=== PATIENT | female | born 1955 | race Caucasian/White ===

== ENCOUNTER 2019-06-22 18:17 | Inpatient (IN) | payer MEDICARE ==
[~2019-06-22] VITALS: Ht 160 cm; Wt 68.0 kg
--- NOTE | 2019-06-22 19:41 | NUR ---
PT IS RESTING IN IN BED WITH EYES OPEN. ALERT TO SELF. DIFFICULT TO DETERMINE A PROPER ORIENTATION DUE TO PT TALKING IN A LOOP. SHE SAID 3 DIFFERENT THINGS ABOUT HER PAST, AND THEN STARTED OVER WITH THE SAME THING, OVER AND OVER. SHE DOES ANSWER QUESTIONS APPROPRIATELY. SR'S ARE UP X 2 IN BED. CALL LIGHT AND BEDSIDE TABLE ARE WITHIN EASY REACH. IS AT BEDSIDE.
[2019-06-22 21:02] VITALS: BP 185/82
--- NOTE | 2019-06-22 22:05 | NUR ---
PT IS RESTING IN BED WITH EYES OPEN. NO ACUTE DISTRESS NOTED.
--- NOTE | 2019-06-22 23:21 | NUR ---
QUIET HOURS. PT LYING IN BED ON LEFT SIDE EYES CLOSED RESTING QUIETLY. CL IN REACH
--- NOTE | 2019-06-23 02:15 | NUR ---
PT IS RESTING QUIETLY IN BED WITH EYES CLOSED. RESPS ARE EVEN AND UNLABORED. NO ACUTE DISTRESS NOTED.
--- NOTE | 2019-06-23 03:29 | NUR ---
I have reviewed this patient and I concur with the Shift Assessment completed by the Licensed Practical Nurse today this shift.
--- NOTE | 2019-06-23 05:23 | NUR ---
PT ASSISTED TO THE BATHROOM WITH MAX ASSIST. HER ATTENTION SPAN IS VERY SHORT. SHE TALKS CONSISTENTLY ABOUT HER FAMILY. SHE NEEDS REPEATED CUEING FOR ALL TASKS, SHE GETS OFF TRACK WHILE TALKING AND FORGETS WHAT SHE IS DOING. ASSISTED BACK TO BED AFTER.
[2019-06-23 05:52] LABS: BASOPHILS 0.5 % (0-2); EOSINOPHILS 7.4 % (0-7); HEMOGLOBIN 13.9 g/dL (12-16); IMMATURE GRANULOCYTES 0.2 % (0-5); LYMPHOCYTES 42.1 % (15-50); MCH 31.7 pg (26.0-34.0); MCHC 33.1 g/dL (31.0-37.0); MCV 95.9 fL (80.0-100.0); MEAN PLATELET VOLUME 11.7 fL (7.4-10.4); MONOCYTES 14.5 % (2-11); NEUTROPHILS 35.3 % (40-80); PLATELET COUNT 256 10x3/uL (130-400); RBC 4.38 10x6/uL (4.00-5.40); RDW 13.4 % (11.5-14.5); WBC 6.5 10x3/uL (4.8-10.8)
[2019-06-23 06:27] LABS: ANION GAP 14.2 mmol/L (8-16); CALCIUM 9.3 mg/dL (8.5-10.1); CREATININE - SERUM 1.7 mg/dL (0.6-1.3); POTASSIUM - SERUM 4.2 mmol/L (3.5-5.1)
[2019-06-23 06:49] VITALS: BP 185/82; BMI 26.6
[2019-06-23 07:57] VITALS: BP 154/64
--- NOTE | 2019-06-23 12:10 | NUR ---
PATIENT ADMITTED TO [facility] FROM AN OUTSIDE FACILITY. DR. JUAN M STEELE IS HER PCP. DISCHARGE PLANS ARE FOR HER TO RETURN HOME WITH HER FAMILY. WILL CONTINUE TO FOLLOW WITH PATIENT AND WILL ASSIST WITH DISCHARGE NEEDS.
--- NOTE | 2019-06-23 13:52 | NUR ---
RESTING QUIETLY IN BED. NO S/S DISTRESS. RUE, RLE HAS NO PURPOSEFUL MOVEMENT BUT HAS LOTS OF TONE. HAS BRACE ON TO RLE. INCONT OF B/B. CALL LIGHT IN REACH
[2019-06-23 14:36] VITALS: Ht 160 cm; Wt 68.0 kg
--- NOTE | 2019-06-23 19:30 | NUR ---
PT SITTING UP IN WHEELCHAIR IN REHAB GYM WITH IN ROOM. DENIES NEEDS AT THIS TIME. PT STATES " I FEEL LIKE IM PANICKY AND NEED A CIGARETTE." THIS NURSE EDUCATED PT THAT SHE WILL GET A NEW PATCH IN A LITTLE WHILE AND IT WILL HELP WITH THE URGE TO SMOKE. RESP EVEN AND UNLABORED. WCTM
[2019-06-23 20:56] VITALS: BP 183/70
--- NOTE | 2019-06-24 00:07 | NUR ---
QUIET HOURS. PT LYING IN BED ON RIGHT SIDE EYES CLOSED RESTING QUIETLY. NO SIGNS OF ACUTE DISTRESS NOTED. CL IN REACH
--- NOTE | 2019-06-24 06:01 | NUR ---
WAS WALKING BY PT ROOM AND PHONE WAS RINGING LAB CAME OUT AND STATED PT WAS SITTING ON BUTTOCKS ON THE FLOOR. WENT INTO ROOM PT WAS SITTING ON FLOOR ON BUTTOCKS AND ALERT WITH NO SIGNS OF INJURY. VITALS WERE TEMP- 97.8, BP 149/82, PULSE 76, RESPIRATIONS 20, AND O2 SAT 97%. PT CONFUSED. BED ALARM PLACED ON BED. CALL LIGHT WAS IN REACH. BED IN LOW SIDE RAILS X2. PT DENIES INJURY AND STATED "I WAS BEING STUPID AND WANTED TO GET UP" PT NEEDED TO USE BATHROOM. PT TAKEN TO COMMODE AND PLACED BACK IN BED. WILL CONTINUE TO MONITOR. FAMILY NOTIFIED AND DOCTOR AMIE NOTIFIED.
[2019-06-24 06:34] LABS: BASOPHILS 0.1 % (0-2); EOSINOPHILS 6.8 % (0-7); HEMATOCRIT 41.8 % (36.0-48.0); HEMOGLOBIN 13.5 g/dL (12-16); IMMATURE GRANULOCYTES 0.3 % (0-5); LYMPHOCYTES 35.8 % (15-50); MCHC 32.3 g/dL (31.0-37.0); MCV 95.9 fL (80.0-100.0); MEAN PLATELET VOLUME 11.9 fL (7.4-10.4); MONOCYTES 15.5 % (2-11); NEUTROPHILS 41.5 % (40-80); PLATELET COUNT 258 10x3/uL (130-400); RBC 4.36 10x6/uL (4.00-5.40); RDW 13.4 % (11.5-14.5); WBC 7.5 10x3/uL (4.8-10.8)
[2019-06-24 07:14] LABS: ANION GAP 14.6 mmol/L (8-16); CALCIUM 9.5 mg/dL (8.5-10.1); CARBON DIOXIDE 24.5 mmol/L (21.0-32.0); CREATININE - SERUM 1.7 mg/dL (0.6-1.3); POTASSIUM - SERUM 4.1 mmol/L (3.5-5.1)
--- NOTE | 2019-06-24 08:00 | NUR ---
PATIENT SITTING UP IN BED TO EAT BREAKFAST. CONFUSED. KNOWS SELF AND THAT SHE IS IN THE HOSPITAL ONLY. DOES NOT KNOW [facility]/TIME OR SITUATION. BED ALARM ON. CALL LIGHT WITHIN REACH. VOICES NO NEEDS AT THIS TIME. WILL CONTINUE WITH PLAN OF CARE
[2019-06-24 08:08] VITALS: BP 152/77
--- NOTE | 2019-06-24 10:02 | NUR ---
ROOM CHANGED FROM 1115 TO 1112B SO PATIENT CAN BE CLOSER TO NURSING STATION IF BED OR CHAIR ALARM GOES OFF. IN REHAB ROOM WORKING WITH PHYSICAL THERAIST. DENIES ANY PAIN/DISC AT THIS TIME.
--- NOTE | 2019-06-24 13:44 | NUR ---
PATIENTS HERE. GAVE THIS NURSE DPOA PAPERS. NURSE COPIED PAPERS AND PUT ON PATIENTS CHART
--- NOTE | 2019-06-24 14:49 | NUR ---
I have reviewed this patient and I concur with the Shift Assessment completed by the Licensed Practical Nurse today this shift.
--- NOTE | 2019-06-24 16:25 | NUR ---
CARE TEAM MEETING: PATIENT IS NEW TO UNIT AND WILL BE RA AT NEXT MEETING. WILL CONTINUE TO FOLLOW WITH PATIENT.
--- NOTE | 2019-06-24 19:46 | NUR ---
AWAKE AND ALERT. NOTED CONFUSED. WAS UP IN WHEELCHAIR BEING WHEELED AROUND BY . ASSISTED TO BATHROOM AND TO BED. RESPIRATIONS UNLABORED. REMAINS IN ROOM. CALL LIGHT IN REACH.
[2019-06-24 20:37] VITALS: BP 179/77
--- NOTE | 2019-06-25 02:41 | NUR ---
SLEEPING WITH RESPIRATIONS UNLABORED. NO DISTRESS NOTED. CALL LIGHT IN REACH.
--- NOTE | 2019-06-25 06:19 | NUR ---
QUIET HOURS. NO ACUTE CHAGNES IN CONDITION THIS SHIFT. REMAINS CONFUSED AND DISORIENTED TO TIME PLACE AND SITUATION. SAFETY MEASURES IN PLACE.
[2019-06-25 08:28] VITALS: BP 144/55
--- NOTE | 2019-06-25 09:35 | NUR ---
PT AM MEDS ADMINISTERED. PT DENIES NEEDS. WCTM.
--- NOTE | 2019-06-25 13:51 | NUR ---
NUTRITION F/U CHART REVIEWED, PT VISIT. TOLERATING REG DIET WITH 50 TO 75% INTAKE RECENT MEALS. NO RECENT BM RECORDED. PT IS ON MIRALAX. WILL CONTINUE TO PROVIDE DIET, HONOR FOOD PREFERENCES. RD FOLLOWING
--- NOTE | 2019-06-25 19:30 | NUR ---
BEDSIDE REPORT RECEIVED FROM DAY SHIFT, PT CARE ASSUMED. INTRODUCED SELF AND WROTE NAME ON BOARD. PT LYING IN BED, AAOX4, C/O HEADACHE PAIN OF 9, ON A SCALE OF 0-10. AT BEDSIDE. DENIES ANY OTHER NEEDS AT THIS TIME. BED LOWEST POSITION, SR X2, CALL LIGHT WITHIN REACH. WILL CONTINUE TO MONITOR.
--- NOTE | 2019-06-25 19:55 | NUR ---
ASSISTED PT TO BATHROOM AND BACK TO BED WITH CANDELARIA HERRERA. DENIES ANY OTHER NEEDS AT THIS TIME. AT BEDSIDE. BED IN LOWEST POSITION, SR X2, CALL LIGHT WITHIN REACH. WILL CONTINUE TO MONITOR.
--- NOTE | 2019-06-25 20:28 | NUR ---
PT LYING IN BED A&A. NIGHT TIME MEDS AND ULTRAM 50 MG ADMINISTERED, PER ORDER. ASSISTED PT TO BATHROOM AND BACK TO BED. DENIES ANY OTHER NEEDS AT THIS TIME. BED IN LOWEST POSITION, SR X2, CALL LIGHT AND CELL PHONE WITHIN REACH. WILL CONTINUE TO MONITOR.
--- NOTE | 2019-06-25 20:44 | NUR ---
OLD NICODERM PATCH REMOVED FROM RIGHT UPPER ARM, NEW NICODERM PATCH APPLIED TO LEFT UPPER ARM.
--- NOTE | 2019-06-25 21:01 | NUR ---
PT C/O ANXIETY, REQUESTING XANAX. XANAX 0.5 MG ADMINISTERED, PER ORDER. AT BEDSIDE. PT DENIES ANY OTHER NEEDS AT THIS TIME. BED IN LOWEST POSITION, SR X2, CALL LIGHT AND CELL PHONE WITHIN REACH. WILL CONTINUE TO MONITOR.
[2019-06-25 21:11] VITALS: BP 169/73
--- NOTE | 2019-06-26 00:47 | NUR ---
PT LYING IN BED WITH EYES CLOSED, RR EVEN AND NONLABORED, NO S/S OF DISTRESS, AROUSES EASILY TO VOICE. DENIES ANY NEEDS AT THIS TIME. BED IN LOWEST POSITION, SR X2, CALL LIGHT WITHIN REACH. WILL CONTINUE TO MONITOR.
--- NOTE | 2019-06-26 05:27 | NUR ---
PT LYING IN BED, ARRT TECHNOLOGIST TO ROOM FOR AM LABS. ARRT TECHNOLOGIST REPORTS, "PT DOES NOT KNOW HER NAME OR WHERE SHE IS." WHEN THIS NURSE ASKED PT HER NAME, PLACE, TIME, AND SITUATION, PT WAS AAOX3, DISORIENTED TO SITUATION. REPORTS, "MY BRAIN IS FOGGY, I'M NOT AWAKE ALL THE WAY YET." REORIENTED TO SITUATION. PT NOTED TO REPEAT STATEMENTS. AM MEDS ADMINISTERED, PER ORDER. ASSISTED PT ONTO AND OFF BED HERNANDEZ WITH ODESSA NOLAN. CLEAR YELLOW URINE NOTED. DENIES ANY NEEDS AT THIS TIME. BED IN LOWEST POSITION, SR X2, CALL LIGHT WITHIN REACH. WILL CONTINUE TO MONITOR.
[2019-06-26 06:23] LABS: BASOPHILS 0.4 % (0-2); EOSINOPHILS 8.4 % (0-7); HEMATOCRIT 41.4 % (36.0-48.0); HEMOGLOBIN 13.4 g/dL (12-16); IMMATURE GRANULOCYTES 0.3 % (0-5); LYMPHOCYTES 32.7 % (15-50); MCH 31.5 pg (26.0-34.0); MCHC 32.4 g/dL (31.0-37.0); MCV 97.2 fL (80.0-100.0); MEAN PLATELET VOLUME 12.7 fL (7.4-10.4); MONOCYTES 15.3 % (2-11); NEUTROPHILS 42.9 % (40-80); PLATELET COUNT 229 10x3/uL (130-400); RBC 4.26 10x6/uL (4.00-5.40); RDW 13.3 % (11.5-14.5); WBC 7.8 10x3/uL (4.8-10.8)
[2019-06-26 06:49] LABS: ANION GAP 13.8 mmol/L (8-16); CALCIUM 9.6 mg/dL (8.5-10.1); CARBON DIOXIDE 27.2 mmol/L (21.0-32.0); CREATININE - SERUM 1.8 mg/dL (0.6-1.3)
[2019-06-26 08:00] VITALS: BP 168/68
--- NOTE | 2019-06-26 10:33 | NUR ---
STILL CONFUSED. MAKE INAPPROPIRATE COMMENTS TO MALE STAFF. CAN BE REDIRECTED BUT FORGETS AND STARTS UP AGAIN MAKING COMMENTS TO MALE STAFF. MALE STAFF LEFT THERAPY ROOM WHILE PT WAS WORKING WITH THERAPY. PT IS WEAK WITH INCREASED WEAKNESS ON RT NOTED.
--- NOTE | 2019-06-26 12:10 | NUR ---
SITTING UP IN WC IN ROOM FOR LUNCH. IN ROOM WITH PT.
--- NOTE | 2019-06-26 17:46 | NUR ---
SITTING IN WC IN ROOM EATING SUPPER WITH . IS STILL CONFUSED AND HAS HARD TIME MOVING LEGS.
--- NOTE | 2019-06-26 19:19 | NUR ---
PT LYING IN BED WATCHING TV. CL IN REACH. IN ROOM. RESP EVEN AND UNLABORED. PT IS CONFUSED. BED ALARM ON. LUNGS CLEAR. BOWEL ACTIVE X4. DENIES NEEDS AT THIS TIME. BED IN LOW SIDE RAILS X2. WILL CONTINUE TO MONITOR.
[2019-06-26 21:05] VITALS: BP 149/63
--- NOTE | 2019-06-26 21:53 | NUR ---
ASSISTED TO AND FROM BATHROOM. PT IS A HIGH FALL RISK AND LEGS WILL COLLAPSE IF NOT PAYING ATTENTION. PT BACK IN BED. BED ALARM ON. CL IN REACH. WCTM
--- NOTE | 2019-06-26 23:19 | NUR ---
I have reviewed this patient and I concur with the Shift Assessment completed by the Licensed Practical Nurse today this shift.
--- NOTE | 2019-06-27 02:00 | NUR ---
RESTING QUETLY. CL IN REACH. NO DISTRESS NOTED. BED ALARM ON. WCTM
--- NOTE | 2019-06-27 05:35 | NUR ---
PT WET THE BED THIS AM. PT ASSISTED TO AND FROM BATHROOM TO USE BATHROOM AND GET CLEANED. PT BACK IN BED. DENIES FUTHER NEEDS. VERY CONFUSED THIS AM. CL IN REACH. BED ALARM ON. WCTM
--- NOTE | 2019-06-27 05:42 | NUR ---
BP 166/56 LEFT ARM. BP MED GIVEN.
[2019-06-27 08:00] VITALS: BP 143/58
--- NOTE | 2019-06-27 09:55 | NUR ---
WORKING WITH THERAPY
--- NOTE | 2019-06-27 14:25 | NUR ---
SITTING UP IN WC IN ROOM. IN ROOM WITH PT. SHE IS STILL VERY CONFUSED, IMPULSIVE AND NEEDS CONSTAND SUPERVISION FOR SAFETY.
[2019-06-27 19:26] VITALS: BP 174/75
--- NOTE | 2019-06-27 19:42 | NUR ---
PT VERY ANXIOUS TONIGHT AND MAD WANTING TO GO HOME. EDUCATED PT ON STAYING HERE TO GET STRENGTH AND PT STILL UPSET. IN ROOM. XANAX AND PAIN PILL GIVEN PER MAR. PT IS STILL CONFUSED. BED ALARM ON. ASSIST TO AND FROM BATHROOM. PT BACK IN BED. CL IN REACH. RESP EVEN AND UNLABORED. BED IN LOW SIDE RAILS X2. WILL CONTINUE TO MONITOR.
--- NOTE | 2019-06-28 00:12 | NUR ---
I have reviewed this patient and I concur with the Shift Assessment completed by the Licensed Practical Nurse today this shift.
--- NOTE | 2019-06-28 01:51 | NUR ---
PT RESTING QUIETLY. CL IN REACH. NO DISTRESS NOTED.WCTM
--- NOTE | 2019-06-28 05:34 | NUR ---
CHANGED PT DUE TO INCONTINENCE OF URINE. LINEN ON BED AND BRIEF CHANGED. PT DENIES NEEDS AT THIS TIME. SITTING UP IN BED DRINKING COFFEE. CL IN REACH. [facility] BED ALARM ON
--- NOTE | 2019-06-28 07:45 | NUR ---
RESTING QUIETLY IN BED. COVERS PULLED UP TO CHIN. NO S/S DISTRESS. SIDE RAILS UP X3. BED ALARM IN PLACE AND ACTIVATED. BED SIDE TABLE WITH PHONE AND WATER IN REACH. CALL LIGHT IN REACH
[2019-06-28 08:00] VITALS: BP 134/60
--- NOTE | 2019-06-28 12:15 | NUR ---
SITTING UP IN FOR LUNCH. VISITED EARLIER THIS MORNING BUT HAD S/S OF NOT FEELING WELL. HE WENT HOME. PT FOCUSED ON BEING SICK TO LIKE . GETS FACTS CONFUSED TILL SHE THEN THOUGHT HER DAUGHTER FROM [place] SHOULD NOT CALL ON PHONE DUE TO POSSIBILITY OF GETTING SICK TOO.
--- NOTE | 2019-06-28 15:28 | NUR ---
RESTING QUIETLY IN BED. HAS BEEN UP AND DOWN ALL DAY. APPETITE REMAINS POOR. CALL LIGHT IN REACH
--- NOTE | 2019-06-28 18:20 | NUR ---
STILL EXTREMELY CONFUSED. CONSTANTLY TALKING AND NOW WANTING TO CALL A TAXI AND LEAVE. CONSTANT REMINDING TO PT IT IS NOT TIME TO DISCHARGE IS NEEDED TO KEEP PT CALMER.
--- NOTE | 2019-06-28 19:20 | NUR ---
GREETED PATIENT AND INTRODUCED MYSELF HER NURSE. PATIENT IS LAYING IN BED WATCHING TV. RESPIRATIONS EVEN. NO S/S OF DISTRESS. STATES THAT PAIN IS 5/10 IN LOWER BACK. DENIES ANY FURTHER NEEDS AT THIS TIME. CALL LIGHT IN REACH.
[2019-06-28 20:00] VITALS: BP 135/51
--- NOTE | 2019-06-28 23:28 | NUR ---
PT. RESTING QUIETLY WITH EYES CLOSED. RESPIRATIONS EVEN. NO S/S OF DISTRESS. SR UP X 2. BED IN LOWEST POSITION. CALL LIGHT IN REACH.
--- NOTE | 2019-06-29 02:41 | NUR ---
PT. RESTING QUIETLY WITH EYES CLOSED. RESPIRTIONS EVEN. NO S/S OF DISTRESS. CALL LIGHT IN REACH.
--- NOTE | 2019-06-29 05:30 | NUR ---
PT. AWAKE AND VERY CONFUSED TO SURROUNDINGS. PT. KEEPS REPEATING SAME STATEMENTS, REDIRECTED. AM MEDICATION ADMINISTERED. LINEN CHANGE INCONTINENT URINE.
[2019-06-29 06:33] LABS: BASOPHILS 0.3 % (0-2); EOSINOPHILS 5.4 % (0-7); HEMATOCRIT 43.1 % (36.0-48.0); HEMOGLOBIN 13.8 g/dL (12-16); IMMATURE GRANULOCYTES 0.4 % (0-5); LYMPHOCYTES 31.1 % (15-50); MCH 31.2 pg (26.0-34.0); MCV 97.5 fL (80.0-100.0); MEAN PLATELET VOLUME 12.8 fL (7.4-10.4); MONOCYTES 14.7 % (2-11); NEUTROPHILS 48.1 % (40-80); PLATELET COUNT 227 10x3/uL (130-400); RBC 4.42 10x6/uL (4.00-5.40); WBC 10.3 10x3/uL (4.8-10.8)
[2019-06-29 07:00] LABS: ANION GAP 17.3 mmol/L (8-16); CALCIUM 9.9 mg/dL (8.5-10.1); CARBON DIOXIDE 24.2 mmol/L (21.0-32.0); POTASSIUM - SERUM 5.5 mmol/L (3.5-5.1)
[2019-06-29 08:14] VITALS: BP 126/49
--- NOTE | 2019-06-29 10:51 | NUR ---
WORKING WITH THERAPY
--- NOTE | 2019-06-29 14:42 | NUR ---
STILL VERY CONFUSED. THINKS SHE HAS HER COLD AND HIS SYMPTOMS. SHE INSISTS SHE IS SICK AND HAS TO LAY IN THE BED. IS GETTING MORE EASILY AGGITATED AND VERBAL. DOES NOT FOLLOW COMMANDS EASILY. TALKS NON STOP REPEATING SAME THING OVER AND OVER. INSISTED SHE HAD A FEVER BUT DID NOT AFTER IT WAS CHECKED BY STAFF.
--- NOTE | 2019-06-29 17:32 | NUR ---
LAYING IN BED. IS SLEEPY BUT AROUSES TO LOUD VERBAL STEMULI. DENIES WANTING TO EAT SUPPER. CALL LIGHT IN REACH
--- NOTE | 2019-06-29 19:22 | NUR ---
GREETED PATIENT AND INTRODUCED MYSELF HER NURSE. PATIENT IS LAYING IN BED WATCHING TV. RESPIRATIONS EVEN. NO S/S OF DISTRESS. DENIES ANY FURTHER NEEDS AT THIS TIME. CALL LIGHT IN REACH.
[2019-06-29 21:00] VITALS: BP 133/66
--- NOTE | 2019-06-29 23:47 | NUR ---
PT. RESTING QUIETLY WITH EYES CLOSED. REPIRATIONS EVEN. NO S/S OF DISTRESS. SR UP X 2. BED IN LOWEST POSITION. CALL LIGHT IN REACH.
--- NOTE | 2019-06-30 00:05 | NUR ---
PT. CLEANED OF INCONTINENT URINE. COMPLETE LINEN CHANGE. PT. REPOSITIONED FOR COMFORT. CALL LIGHT IN REACH.
--- NOTE | 2019-06-30 04:41 | NUR ---
PT. RESTING QUIETLY WITH EYES CLOSED. RESPIRATIONS EVEN. NO S/S OF DISTRESS. CALL LIGHT IN REACH.
--- NOTE | 2019-06-30 05:25 | NUR ---
PT. CLEANED OF INCONTINENT URINE. PT. BECAME VERBALLY DIRUPTIVE. UNABLE TO REDIRECT PATIENT BACK TO PROPER BEHAVIOR. HIT THIS NURSE IN THE HEAD WHILE TRYING TO REPOSITION FOR COMFORT. CALL LIGHT IN REACH.
[2019-06-30 06:22] LABS: ANION GAP 16.8 mmol/L (8-16); CALCIUM 9.5 mg/dL (8.5-10.1); CARBON DIOXIDE 23.6 mmol/L (21.0-32.0); CREATININE - SERUM 2.2 mg/dL (0.6-1.3); POTASSIUM - SERUM 5.4 mmol/L (3.5-5.1)
--- NOTE | 2019-06-30 08:15 | NUR ---
PT RESTING IN BED WITH EYES OPEN CALL LIGHT IN REACH WILL MONITER
[2019-06-30 08:21] VITALS: BP 113/59
--- NOTE | 2019-06-30 13:09 | NUR ---
Nutrition Follow-up: Chart reviewed. Noted pt with renal consult. Diet: Cardiac PO intake: <25% average. She is drinking some of the Ensure. Wt: 150# (06/23/19), no new wt. Last BM 06/27/19. Labs noted: Glu 120, GFR 24, Cr 2.2, BUN 64, K 5.4 Meds and nursing skin assessment reviewed. Continue current nutrition regimen for now. I do not feel that PO intake is adequate to warrent a change to renal diet/K limited diet at this time. May consider change to Nepro vs. Ensure. Encouraged PO intake. Consider appetite stimulant? RD Following
--- NOTE | 2019-06-30 18:04 | NUR ---
PT RESTING IN BED WITH EYES OPEN CALL LIGHT IN REACH WILL MONITER
--- NOTE | 2019-06-30 19:30 | NUR ---
PATIENT REFUSED IV. IN ROOM.
--- NOTE | 2019-06-30 20:00 | NUR ---
PATIENT UP IN WHEELCHAIR BY BED. IN ROOM. ASSESSMENT & VITAL SIGNS DONE. PATIENT HAD NO PAIN OR DISTRESS AT THIS TIME. CALL LIGTH WITHIN REACH. WILL CONTINUE TO MONITOR.
[2019-06-30 21:05] VITALS: BP 129/68
--- NOTE | 2019-06-30 21:10 | NUR ---
PATIENT FOUND ON FLOOR SITTING ON BUTTOCKS UPRIGHT. PATIENT STATED "I WAS TRYING TO GET INTO BED." CALL LIGHT WITHIN REACH. PATIENT ALERT & CONFUSED. CONFUSION IS NOT NEW. PATIENT RETURNED TO BED. BED ALARM ON. CALL LIGHT WITHIN REACH. PREVIOUS TO FALL PATIENT WAS SITTING IN WHEELCHAIR NEXT TO BED. FALL RISK ARM BAND ON PATIENT. PATIENT WEARING TENNIS SHOES. DENIES NEEDS AT THIS TIME. VITALS WNL. NEURO CHECKS IMPLEMENTED Q 2 HOURS. PAGED MARGE DURANT, NO NEW ORDERS. FAMILY CALLED NO RESPONSE.
[2019-06-30 21:15] VITALS: BP 116/63
--- NOTE | 2019-06-30 23:40 | NUR ---
PATIENT COOPERATIVE & NICOTINE PATCH APPLIED TO BACK OF RIGHT SHOULDER. BED LOW. ALARM ON. NEURO CHECK WNL. WILL CONTINUE TO MONITOR.
[2019-06-30 23:42] VITALS: BP 120/59
--- NOTE | 2019-07-01 00:04 | NUR ---
I have reviewed this patient and I concur with the Shift Assessment completed by the Licensed Practical Nurse today this shift. IV STARTED WITH 22G CATH TO RIGHT FOREARM X 1 STICK. IVF OF 0.9% NORMAL SALINE STARTED, INFUSING AT 100ML/HR.
[2019-07-01 01:36] VITALS: BP 164/77
[2019-07-01 03:35] VITALS: BP 138/65
--- NOTE | 2019-07-01 05:26 | NUR ---
ERON JAVIER APN CALLED BACK. NEW ORDERS KAYEXALATE 30 GM NOW. AM LAB POTASSIUM OVER 5 RETAKE BMP AT NOON. TRAVIS QUINAPRIL. ORDERS NOTED.
[2019-07-01 05:43] VITALS: BP 153/74
--- NOTE | 2019-07-01 06:27 | NUR ---
PATIENT COOPERATIVE & DRANK ALL OF HER KAYEXELATE. BED LOW. ALARM ON. CALL LIGHT WITHIN REACH. WILL CONTINUE TO MONITOR.
[2019-07-01 06:51] LABS: BASOPHILS 0.2 % (0-2); EOSINOPHILS 2.1 % (0-7); HEMATOCRIT 37.6 % (36.0-48.0); HEMOGLOBIN 12.2 g/dL (12-16); IMMATURE GRANULOCYTES 0.6 % (0-5); LYMPHOCYTES 24.5 % (15-50); MCH 31.1 pg (26.0-34.0); MCHC 32.4 g/dL (31.0-37.0); MCV 95.9 fL (80.0-100.0); MONOCYTES 15.4 % (2-11); NEUTROPHILS 57.2 % (40-80); PLATELET COUNT 271 10x3/uL (130-400); RBC 3.92 10x6/uL (4.00-5.40)
[2019-07-01 07:22] LABS: ANION GAP 13.8 mmol/L (8-16); CALCIUM 9.1 mg/dL (8.5-10.1); CARBON DIOXIDE 22.9 mmol/L (21.0-32.0); CREATININE - SERUM 2.2 mg/dL (0.6-1.3); POTASSIUM - SERUM 4.7 mmol/L (3.5-5.1)
[2019-07-01 08:16] VITALS: BP 107/50
--- NOTE | 2019-07-01 08:45 | NUR ---
PT AM MEDS ADMINISTERED. PRN XANAX GIVEN FOR ANXIETY. LOPRESSOR HELD FOR BP 107/50. PT REMAINS CONFUSED AT THIS TIME. PT IV PATENT AND INFUSING 100ML/HR. WCTM.
--- NOTE | 2019-07-01 09:12 | RHP ---
PATIENT: KEVIN GASPAR MEDICAL RECORD: [id number] ACCOUNT: [id number] LOCATION:[facility] : 53 ADMISSION DATE: 06/22/19 REHABILITATION HISTORY AND PHYSICAL EXAMINATION POST ADMISSION PHYSICIAN EXAMINATION DATE OF ADMISSION: 06/22/2019 ADMITTING DIAGNOSES: Cerebrovascular accident due to occlusion of left middle cerebral artery. HISTORY OF PRESENT ILLNESS: The patient is a 64-year-old female patient who presented to ED via EMS when her stating that she had abnormal behavior, woke up from her nap acting strangely. He stated that she woke up in her normal self the morning of 06/15/2019, but after taking a nap woke up strange, ambulated short distance with a rolling walker and asked her to assist her to the bed. He then stated that her right arm was limp and she had a left gaze deviation. He was unable to get her up and around, and called paramedics at that time. Upon their arrival, she was able to move her right arm. She began taking CBD oil about 3 weeks prior to this episode and some D3 supplements and her thought that this may have contributed to her episode. MRI of her brain showed acute to subacute ischemia in the left medial temporal lobe posterior elements and scattered in the left occipital lobe, chronic right middle cerebral artery infarction with encephalomalacia and noted changes. She was admitted to the acute hospital. She has been working with OT and PT. She has had some agitation noted on 06/17/2019, believed to be from acute withdrawal or benzodiazepine. She has been started back on her Xanax and no other agitation has been noted. She has got a history of depression, coronary artery disease, hypertension, gastroesophageal reflux disease. She was diagnosed with acute metabolic encephalopathy. During her acute hospital stay, was started on Zyprexa. She is currently having some problems with her blood pressure at times. Her behaviors are monitored and medication changes adjusted. She has deconditioning, weakness, debility, impaired mobility, gait disturbance. She has high fall risk and self-care deficits. These are all barriers to her discharge home. She has been progressing with both OT and PT, and she and her spouse are in agreeance with being placed in inpatient rehab care. She was independent with use of rolling walker for mobility and independent with her ADLs prior to this. Currently, she is set up for max assist for ADLs and mod assist to max assist for mobility. She and her spouse would like for her return home at her prior level of functioning or better if possible. COMORBIDITIES: Include CVA due to occlusion of left middle cerebral artery, acute metabolic encephalopathy, hypertension, hypothyroidism, coronary artery disease. She has got possible right common carotid artery stenosis on her carotid Dopplers. She has got a history of agitation, benzodiazepine withdrawal, chronic benzodiazepine treatment, chronic low back pain, radiculopathy. PAST MEDICAL HISTORY: Significant for she has got a history of back injury, coronary artery disease, hypertension, gastroesophageal reflux disease, hypothyroidism. SUBSTANCE ABUSE: History of VRE, history of tobacco use. PAST SURGICAL HISTORY: Includes colonoscopy, hysterectomy, PTCA, spinal surgery, HISTORY AND PHYSICAL [id number] KEVIN GASPAR lumbar laminectomy and she has had a cholecystectomy. ALLERGIES: No known drug allergies. CURRENT MEDICATIONS: Include a Nicoderm patch 21 mg daily, she is on Pravachol 20 mg daily, Protonix 40 mg daily, vitamin D 1000 units daily, calcium carbonate 1250 mg daily, chewable aspirin 81 mg daily, Synthroid 100 mcg daily, hydralazine 100 mg 3 times a day, she is on Accupril 20 mg b.i.d., Zyprexa 2.5 mg at bedtime, metoprolol 50 mg b.i.d., Kenalog to apply daily, she is on tramadol 50 mg every 4 hours p.r.n., Zofran 4 mg every 8 hours p.r.n., Nitrostat 0.4 mg every 5 minutes times 3 p.r.n. chest pain, Clonidine 0.1 mg for systolic blood pressure greater than 170 or diastolic greater than 105, Xanax 0.5 mg t.i.d. p.r.n. and acetaminophen 650 mg every 6 hours as needed. HABITS: Does have a history of tobacco use. FAMILY HISTORY: Noncontributory. SOCIAL HISTORY: The patient hopes to return back home and get back to her prior level of functioning. REVIEW OF SYSTEMS: GENERAL: Does complain of some weakness and fatigue. HEENT: Denies cold, cough, or congestion. CARDIOVASCULAR: Denies chest pain. PHYSICAL EXAMINATION: VITAL SIGNS: Stable, afebrile. GENERAL: An elderly female, in no acute distress, alert upon exam. HEENT: Normocephalic and atraumatic. Mucosa moist. NECK: Supple without adenopathy. LUNGS: Clear at this time with no wheeze, rhonchi or rales. HEART: Regular rate and rhythm. No murmurs, rubs or gallops. ABDOMEN: Soft and nondistended. Positive bowel sounds times 4. EXTREMITIES: No clubbing, cyanosis or edema. NEUROLOGIC: She does have noted weakness, maybe right greater than left. She does have noted weakness in her proximal muscles of her legs at 2/5. LABORATORY DATA: Her admit white count 6.5, H&H 13 and 42, and platelet count is 256. Her sodium is 141, potassium 4.2, BUN and creatinine of 27 and 1.7, blood sugar is 107. ASSESSMENT: This is a 64-year-old female patient admitted to rehab with a working diagnosis of cerebrovascular accident with right body involvement. The patient has potential to make improvement. We instituted the following multidisciplinary therapies including, but not limited to physical, occupational, respiratory, speech, nutritional services, prosthetics and orthotics. Given her complex medical condition and risk for more complications, rehabilitation services cannot be provided at a low level of care such as skilled nurse facility. PLAN: 1. Admit to [facility] for intensive inpatient therapy to include the following disciplines; A. Physical therapy to improve gait, all transfer skills and bed mobility to a HISTORY AND PHYSICAL [id number] KEVIN GASPAR modified independent level. B. Occupational therapy to a modified independent level. C. Case management to assist with discharge planning and placement options. D. Nutrition to assist with nutritional needs. E. Rehabilitation nursing to assist in monitoring the underlying medical conditions and to assist with any type of bowel or bladder management. 2. The patient's current medication and medical care will be continued. 3. The patient will be placed on standard fall precautions. 4. The patient's estimated length of stay is approximately 7-10 days. 5. I will go ahead and check upon vitamin D level secondary to her fall history and supplementation and see again in the a.m. TRANSINT:[id number] Voice Confirmation ID: [id number] DOCUMENT ID: [id number] DARIANA notes whether there has been none or any medical/functional change since admission: - No change since preadmission screen. DARIANA attests patient continues to be appropriate for IRF: - Continues to be appropriate. ALIA HOLLOWAY MD at 0912 CC: [id number] DICTATION DATE: 06/23/19837 PROFESSOR OF EDUCATION: 06/23/19 09 ADM IN [facility] [address] [place] [address]
--- NOTE | 2019-07-01 09:48 | NUR ---
ATTEMPTED TO GET PT IN THE SHOWER. PT WAS ADAMENT THAT THERE WOULD BE NO SHOWER BECAUSE HER SNUCK HER OUT OF THE HOSPITAL AND TOOK HER HOME AND GAVE HER A SHOWER AND BROUGHT HER BACK. PT WOULD NOT GET OUT OF WHEELCHAIR AND INTO SHOWER. PT SAID NO I AM GOING HOME. PT HAS NO DISCHARGE ORDER TO GO HOME AT THIS TIME. PT THEN ATTEMPTED TO GET BACK IN BED ON HER OWN. THIS NURSE ASSISTED PT INTO BED.
[2019-07-01 17:41] LABS: POTASSIUM - URINE 48.4 MMOL/L (12.0-62.0); PRO/CRE RATIO URINE 0.3 mg/g; PROTEIN - URINE 17.4 mg/dL (0.0-11.9)
[2019-07-01 17:47] LABS: APPEARANCE CLEAR (CLEAR); BILIRUBIN NEGATIVE (NEGATIVE); COLOR YELLOW (YELLOW); GLUCOSE NEGATIVE (NEGATIVE); KETONE NEGATIVE (NEGATIVE); NITRITE NEGATIVE (NEGATIVE); PROTEIN NEGATIVE (NEGATIVE); UROBILINOGEN NORMAL (NORMAL)
[2019-07-01 17:49] LABS: BACTERIA MANY /hpf (NEGATIVE); MUCUS <1+ /lpf (NONE SEEN); RED CELLS - URINE OCC /hpf (0-5)
--- NOTE | 2019-07-01 20:00 | NUR ---
PATIENT RECEIVED LAYING IN BED. BED LOW. ALARM ON. VITAL SIGNS & ASSESSMENT DONE. NO C/O PAIN OR DISTRESS AT THIS TIME. WILL CONTINUE TO MONITOR.
[2019-07-01 21:20] VITALS: BP 140/61
[2019-07-01 22:21] VITALS: BP 129/68
--- NOTE | 2019-07-02 02:13 | NUR ---
PATIENT EYES CLOSED. RESPIRATIONS 18 & EVEN. IV NS @ 100 ML/HR CONTINUES. BED LOW. ALARM ON. CALL LIGHT WITHIN REACH. WILL CONTINUE TO MONITOR.
--- NOTE | 2019-07-02 03:50 | NUR ---
PT LYING IN BED SUPINE EYES CLOSED RESTING. RR EVEN AND UNLABORED. CL IN REACH
--- NOTE | 2019-07-02 04:27 | NUR ---
I have reviewed this patient and I concur with the Shift Assessment completed by the Licensed Practical Nurse today this shift.
[2019-07-02 06:00] VITALS: BP 155/73
[2019-07-02 08:00] VITALS: BP 146/66
[2019-07-02] MEDS ORDERED: PRAVACHOL20 MG PO (08:42)
[2019-07-02] MEDS ORDERED: NITROQUICK0.4 MG SL (08:42)
[2019-07-02] MEDS ORDERED: HYDRALAZINE HCL50 MG PO (08:42)
[2019-07-02] MEDS ORDERED: METOPROLOL TART50 MG PO (08:42)
[2019-07-02] MEDS ORDERED: ULTRAM50 MG PO (08:43)
[2019-07-02] MEDS ORDERED: CATAPRES0.1 MG PO (08:43)
[2019-07-02] MEDS ORDERED: OS-CAL500 MG PO (08:43)
[2019-07-02] MEDS ORDERED: ZYPREXA2.5 MG PO (08:43)
[2019-07-02] MEDS ORDERED: ASPIRIN81 MG PO (08:43)
[2019-07-02] MEDS ORDERED: XANAX0.25 MG PO (08:43)
[2019-07-02] MEDS ORDERED: ACETAMINOPHEN325 MG PO (08:43)
[2019-07-02] MEDS ORDERED: PROTONIX40 MG PO (08:44)
[2019-07-02] MEDS ORDERED: VITAMIN D31000 UNI2 PO (08:44)
[2019-07-02] MEDS ORDERED: PATIENT'S OWN MEDICA PO (08:44)
[2019-07-02] MEDS ORDERED: LEVOTHYROXINE100 MCG PO (08:44)
[2019-07-02] MEDS ORDERED: KENALOG 0.1 % 115 GM TOPICAL (08:44)
[2019-07-02] MEDS ORDERED: CIPRO250 MG PO (09:13)
--- NOTE | 2019-07-02 09:36 | NUR ---
PATIENT IS VERY CONFUSED. SITTING UP IN WHEELCHAIR TO EAT BREAKFAST. CHAIR ALARM ON. PATIENT IS TO BE DISCHARGED TO HOME TODAY. DR Tanya HOLLOWAY HAS BEEN INTO SEE PATIENT AND WRITTEN DISCHARGE ORDERS
--- NOTE | 2019-07-02 13:06 | NUR ---
PATIENT DISCHARGING HOME TODAY WITH FAMILY TODAY. [facility] WILL PROVIDE THERAPY AT HOME. [facility] WILL DELIVER A WHEELCAHIR TO PATIENT. DR. JUAN M STEELE 07/06/19 @ 1:45. PATIENT CHOICE FORM (HAND OUT GIVEN ) AND [facility] FORMS SIGNED, COPY GIVEN TO PATIENT. DISCHARGE INSTRUCTIONS FAXED TO HOME HEALTH, PCP AND REVIEWED WITH PATIENT.
--- NOTE | 2019-07-02 13:26 | NUR ---
PATIENT DISCHARGED HOME WITH . DISCHARGE INSTRUCTIONS GONE OVER WITH . PATIENT IS VERY CONFUSED. DISCHARGE MEDICATIONS CALLED INTO [facility]
== END 2019-07-02 13:29 | disposition home health service (06) | DRG 56 ==
LOC: D.REHAB 18:17
PROVIDERS: Internal Medicine; ADMIT Emergency Medicine; ATTEND Emergency Medicine
DX: I69.30 Unspecified sequelae of cerebral infarction (principal); G93.41 Metabolic encephalopathy; N17.9 Acute kidney failure, unspecified; N39.0 Urinary tract infection, site not specified; E78.5 Hyperlipidemia, unspecified; I25.10 Atherosclerotic heart disease of native coronary artery without angina pectoris; K21.9 Gastro-esophageal reflux disease without esophagitis; G89.29 Other chronic pain; I12.9 Hypertensive chronic kidney disease with stage 1 through stage 4 chronic kidney disease, or unspecified chronic kidney disease; N18.3 Chronic kidney disease, stage 3 (moderate); E03.9 Hypothyroidism, unspecified; F17.200 Nicotine dependence, unspecified, uncomplicated